=== PATIENT | male | born 1950 | race Caucasian/White ===

== ENCOUNTER 2018-07-22 16:28 | Emergency (ER) | payer OTHER ==
[~2018-07-22] VITALS: Ht 193 cm; Wt 103.9 kg
[2018-07-22 16:33] VITALS: Ht 193 cm; Wt 103.9 kg
[2018-07-22 17:12] VITALS: BP 168/97
== END 2018-07-22 17:12 | disposition home or self-care (01) ==
LOC: ED 16:28
DX: S01.01XD Laceration without foreign body of scalp, subsequent encounter (principal); W22.8XXD Striking against or struck by other objects, subsequent encounter